=== PATIENT | female | born 1955 | race Asian ===

== ENCOUNTER 2018-05-20 20:06 | Inpatient (IN) | payer SELFPAY ==
[~2018-05-20] VITALS: Ht 152.4 cm; Wt 50.9 kg
[2018-05-20 20:28] LABS: GLUCOSE,POINT OF CARE 149 MG/DL (70-110)
[2018-05-20] MEDS ORDERED: FERR-82 PO (20:36)
[2018-05-20] MEDS ORDERED: AMLO-512 PO (20:36)
[2018-05-20] MEDS ORDERED: LINA5TAB PO (20:36)
[2018-05-20] MEDS ORDERED: SODI650T PO (20:36)
[2018-05-20] MEDS ORDERED: [UNRECOGNIZED DRUG - OTHER] PO (20:36)
[2018-05-20] MEDS ORDERED: CHOL200059 PO (20:36)
[2018-05-20] MEDS ORDERED: ASPI81 PO (20:36)
[2018-05-20 21:09] LABS: MONOCYTES # (AUTO) 0.8 K/uL (0.1-1.0); NEUTROPHILS % (AUTO) 78.8 % (40.0-70.0)
[2018-05-20 21:15] LABS: BASOPHILS % (AUTO) 0.4 % (0.0-2.0); EOSINOPHILS % (AUTO) 3.4 % (1.0-6.0); HEMATOCRIT 21.1 % (36-46); LYMPHOCYTES # (AUTO) 1.5 K/uL (1.0-4.8); LYMPHOCYTES % (AUTO) 11.4 % (22.0-44.0); MEAN CORPUSCULAR HEMOGLOBIN 28.3 pg (26.0-34.0); MEAN CORPUSCULAR HGB CONC 32.7 G/dL (31.0-37.0); MEAN CORPUSCULAR VOLUME 87 fL (80-100); NEUTROPHILS # (AUTO) 10.1 K/uL (1.8-7.7); PLATELET COUNT (AUTO) 249 K/uL (150-450); RED BLOOD CELL COUNT(AUTO) 2.44 MIL/uL (4.00-5.20); RED CELL DISTRIBUTION WIDTH 17.1 % (11.5-14.5)
[2018-05-20 21:16] LABS: CREATININE 8.19 mg/dL (0.60-1.30); POTASSIUM 5.1 mmol/L (3.5-5.1)
[2018-05-20 21:19] LABS: HEMOGLOBIN 6.9 g/dL (12.0-16.0)
[2018-05-20 21:21] LABS: ALBUMIN 2.7 g/dL (3.4-5.0); BILIRUBIN,TOTAL 0.4 mg/dL (0.1-1.0); TOTAL PROTEIN, SERUM 8.2 g/dL (6.4-8.2)
[2018-05-20] MEDS ORDERED: ONDANSETRON HCL 4 MG/2 ML VIAL IVP PRN (22:00)
[2018-05-20] MEDS ORDERED: ALBUTEROL SULFATE 2.5 MG/0.5 ML NEB SOLUTION NEB PRN (22:00)
[2018-05-20] MEDS ORDERED: ACETAMINOPHEN 325 MG TABLET PO PRN ×2 (22:00)
[2018-05-20] MEDS ORDERED: DEXTROSE 50%-WATER 25 GM/50 ML SYRINGE IVP PRN (22:00)
[2018-05-20] MEDS ORDERED: BISACODYL 10 MG RECTAL RECTAL SUPPOSITORY PR PRN (22:00)
[2018-05-20] MEDS ORDERED: 0.9% SODIUM CHLORIDE 10 ML SYRINGE IVP PRN (22:00)
[2018-05-20 23:10] VITALS: BP 154/93
[2018-05-20 23:25] VITALS: BP 160/68
[2018-05-20 23:40] VITALS: BP 158/79
[2018-05-20 23:55] VITALS: BP 165/72
[2018-05-21] VITALS (12 sets, daily range): BP systolic 110–175; BP diastolic 56–87
[2018-05-21] MEDS: CloNIDine HCL 0.1 MG TABLET PO PRN (00:51)
[2018-05-21] MEDS: INSULIN LISPRO 100 UNITS/ML SQ PRN ×3 (06:03→20:43)
[2018-05-21 06:32] LABS: BASOPHILS % (AUTO) 0.6 % (0.0-2.0); EOSINOPHILS % (AUTO) 3.2 % (1.0-6.0); HEMATOCRIT 22.8 % (36-46); HEMOGLOBIN 7.7 g/dL (12.0-16.0); LYMPHOCYTES # (AUTO) 1.3 K/uL (1.0-4.8); LYMPHOCYTES % (AUTO) 12.5 % (22.0-44.0); MEAN CORPUSCULAR HEMOGLOBIN 29.1 pg (26.0-34.0); MEAN CORPUSCULAR HGB CONC 33.5 G/dL (31.0-37.0); MEAN CORPUSCULAR VOLUME 87 fL (80-100); MONOCYTES # (AUTO) 0.7 K/uL (0.1-1.0); MONOCYTES % (AUTO) 6.3 % (2.0-9.0); NEUTROPHILS # (AUTO) 8.2 K/uL (1.8-7.7); NEUTROPHILS % (AUTO) 77.4 % (40.0-70.0); PLATELET COUNT (AUTO) 217 K/uL (150-450); RED BLOOD CELL COUNT(AUTO) 2.63 MIL/uL (4.00-5.20); RED CELL DISTRIBUTION WIDTH 16.4 % (11.5-14.5)
[2018-05-21 06:55] LABS: CALCIUM, TOTAL 8.8 mg/dL (8.8-10.5); CREATININE 8.45 mg/dL (0.60-1.30); POTASSIUM 5.2 mmol/L (3.5-5.1)
[2018-05-21] MEDS: PANTOPRAZOLE SODIUM 40 MG DR TABLET PO SCH (08:35)
[2018-05-21] MEDS: DOCUSATE SODIUM 100 MG CAPSULE PO SCH ×2 (08:35→20:34)
[2018-05-21] MEDS: ASPIRIN 81 MG CHEWABLE TABLET PO SCH (08:36)
[2018-05-21] MEDS ORDERED: AmLODIPine BESYLATE 10 MG TABLET PO SCH (09:00)
[2018-05-21 10:14] LABS: GLUCOMETER DEV NAME(LOC) 5N 1P; GLUCOSE,POINT OF CARE 142 MG/DL (70-110)
[2018-05-21] MEDS ORDERED: LIDOCAINE/PF 1% 2 ML VIAL INJ ONE (12:00)
[2018-05-21 15:09] LABS: GLUCOMETER DEV NAME(LOC) 5N 1P; GLUCOSE,POINT OF CARE 149 MG/DL (70-110)
[2018-05-21 19:54] LABS: GLUCOMETER DEV NAME(LOC) 5N 2S; GLUCOSE,POINT OF CARE 158 MG/DL (70-110)
[2018-05-21] MEDS: HydrALAZINE HCL 25 MG TABLET PO SCH (20:34)
[2018-05-21] MEDS: CARVEDILOL 6.25 MG TABLET PO SCH (21:46)
[2018-05-22] VITALS (8 sets, daily range): BP systolic 128–153; BP diastolic 66–88
[2018-05-22 02:09] LABS: GLUCOMETER DEV NAME(LOC) 5N 2S; GLUCOSE,POINT OF CARE 176 MG/DL (70-110)
[2018-05-22] MEDS: ASPIRIN 81 MG CHEWABLE TABLET PO SCH (08:10)
[2018-05-22] MEDS: PANTOPRAZOLE SODIUM 40 MG DR TABLET PO SCH (08:10)
[2018-05-22] MEDS: CARVEDILOL 6.25 MG TABLET PO SCH ×2 (08:10→20:35)
[2018-05-22] MEDS: HydrALAZINE HCL 25 MG TABLET PO SCH ×2 (08:10→20:35)
[2018-05-22] MEDS: DOCUSATE SODIUM 100 MG CAPSULE PO SCH ×2 (08:13→20:35)
[2018-05-22 08:42] LABS: BAND NEUTROPHILS % (MANUAL) 0 % (0-5)
[2018-05-22 08:48] LABS: HEMATOCRIT 30.8 % (36-46); HEMOGLOBIN 10.2 g/dL (12.0-16.0); MEAN CORPUSCULAR HEMOGLOBIN 29.1 pg (26.0-34.0); MEAN CORPUSCULAR HGB CONC 33.3 G/dL (31.0-37.0); MEAN CORPUSCULAR VOLUME 87 fL (80-100); PLATELET COUNT (AUTO) 243 K/uL (150-450); RED BLOOD CELL COUNT(AUTO) 3.52 MIL/uL (4.00-5.20); RED CELL DISTRIBUTION WIDTH 15.6 % (11.5-14.5)
[2018-05-22 08:58] LABS: CALCIUM, TOTAL 9.1 mg/dL (8.8-10.5); CREATININE 5.55 mg/dL (0.60-1.30); POTASSIUM 4.7 mmol/L (3.5-5.1)
[2018-05-22 09:49] LABS: BASOPHILS % (MANUAL) 1 % (0-2); LYMPHOCYTES % (MANUAL) 13 % (22-44); MONOCYTES % (MANUAL) 5 % (2-9); PLATELET MORPHOLOGY COMMENT LARGE PLTS PRESENT; SEGMENTED NEUTROPHILS % 81 % (40-70)
[2018-05-22] MEDS: APIXABAN 2.5 MG TABLET PO SCH ×2 (10:00→20:35)
[2018-05-22] MEDS: AmLODIPine BESYLATE 5 MG TABLET PO SCH (10:00)
[2018-05-22] MEDS ORDERED: ZOLPIDEM TARTRATE 5 MG TABLET PO PRN (10:30)
[2018-05-22] MEDS: GuaiFENesin/D-METHORPHAN [SUGAR-FREE] 200-20MG/10 ML SYRUP UDCUP PO PRN ×2 (11:27→22:08)
[2018-05-22] MEDS: INSULIN LISPRO 100 UNITS/ML SQ PRN ×2 (11:46→20:46)
[2018-05-22 18:09] LABS: GLUCOMETER DEV NAME(LOC) 5N 1P; GLUCOSE,POINT OF CARE 151 MG/DL (70-110)
[2018-05-22 18:09] LABS: GLUCOMETER DEV NAME(LOC) 5N 1P; GLUCOSE,POINT OF CARE 165 MG/DL (70-110)
[2018-05-22 18:54] LABS: GLUCOMETER DEV NAME(LOC) 5N 2S; GLUCOSE,POINT OF CARE 132 MG/DL (70-110)
[2018-05-23 04:04] VITALS: BP 163/76
[2018-05-23 06:22] LABS: BASOPHILS % (AUTO) 1.4 % (0.0-2.0); EOSINOPHILS % (AUTO) 3.2 % (1.0-6.0); HEMATOCRIT 29.1 % (36-46); HEMOGLOBIN 9.7 g/dL (12.0-16.0); LYMPHOCYTES # (AUTO) 1.4 K/uL (1.0-4.8); LYMPHOCYTES % (AUTO) 11.7 % (22.0-44.0); MEAN CORPUSCULAR HEMOGLOBIN 29.2 pg (26.0-34.0); MEAN CORPUSCULAR HGB CONC 33.3 G/dL (31.0-37.0); MEAN CORPUSCULAR VOLUME 88 fL (80-100); MONOCYTES # (AUTO) 0.8 K/uL (0.1-1.0); MONOCYTES % (AUTO) 6.5 % (2.0-9.0); NEUTROPHILS # (AUTO) 9.2 K/uL (1.8-7.7); NEUTROPHILS % (AUTO) 77.2 % (40.0-70.0); PLATELET COUNT (AUTO) 250 K/uL (150-450); RED BLOOD CELL COUNT(AUTO) 3.32 MIL/uL (4.00-5.20); RED CELL DISTRIBUTION WIDTH 15.8 % (11.5-14.5)
[2018-05-23 06:44] LABS: CALCIUM, TOTAL 9.1 mg/dL (8.8-10.5); CREATININE 6.72 mg/dL (0.60-1.30); POTASSIUM 5.5 mmol/L (3.5-5.1)
[2018-05-23 07:44] VITALS: BP 153/76
[2018-05-23] MEDS: AmLODIPine BESYLATE 5 MG TABLET PO SCH (09:00)
[2018-05-23] MEDS ORDERED: SODIUM CHLORIDE 0.9% 2,000 ML IV ONE (09:20)
[2018-05-23 11:41] VITALS: BP 157/75
[2018-05-23 13:34] LABS: GLUCOMETER DEV NAME(LOC) 5N 1P; GLUCOSE,POINT OF CARE 185 MG/DL (70-110)
[2018-05-23] MEDS: ASPIRIN 81 MG CHEWABLE TABLET PO SCH (14:38)
[2018-05-23] MEDS: PANTOPRAZOLE SODIUM 40 MG DR TABLET PO SCH (14:38)
[2018-05-23] MEDS: APIXABAN 2.5 MG TABLET PO SCH ×2 (14:38→20:34)
[2018-05-23] MEDS: CARVEDILOL 6.25 MG TABLET PO SCH ×2 (14:38→20:34)
[2018-05-23] MEDS: DOCUSATE SODIUM 100 MG CAPSULE PO SCH ×2 (14:38→20:34)
[2018-05-23] MEDS: HydrALAZINE HCL 25 MG TABLET PO SCH ×2 (14:38→20:34)
[2018-05-23] MEDS: EPOETIN ALFA 10,000 UNITS/ML 2 ML VIAL SQ SCH (14:39)
[2018-05-23] MEDS: AMIODARONE HCL 200 MG TABLET PO SCH ×2 (14:39→20:34)
[2018-05-23] MEDS: INSULIN LISPRO 100 UNITS/ML SQ PRN ×2 (14:40→20:50)
[2018-05-23 15:57] VITALS: BP 144/75
[2018-05-23 20:20] VITALS: BP 145/61
[2018-05-23] MEDS: GuaiFENesin/D-METHORPHAN [SUGAR-FREE] 200-20MG/10 ML SYRUP UDCUP PO PRN (21:41)
[2018-05-24] VITALS (7 sets, daily range): BP systolic 129–188; BP diastolic 60–83
[2018-05-24] MEDS: INSULIN LISPRO 100 UNITS/ML SQ PRN (05:45)
[2018-05-24 07:06] LABS: CALCIUM, TOTAL 8.8 mg/dL (8.8-10.5); CREATININE 5.35 mg/dL (0.60-1.30); MAGNESIUM 1.8 mg/dL (1.80-2.40); PHOSPHORUS 5.3 mg/dL (2.5-4.9); POTASSIUM 4.4 mmol/L (3.5-5.1)
[2018-05-24] MEDS: DOCUSATE SODIUM 100 MG CAPSULE PO SCH ×2 (09:26→21:15)
[2018-05-24] MEDS: HydrALAZINE HCL 25 MG TABLET PO SCH ×2 (09:26→21:15)
[2018-05-24] MEDS: AMIODARONE HCL 200 MG TABLET PO SCH ×2 (09:26→21:15)
[2018-05-24] MEDS: CARVEDILOL 6.25 MG TABLET PO SCH ×2 (09:26→21:14)
[2018-05-24] MEDS: AmLODIPine BESYLATE 5 MG TABLET PO SCH (09:26)
[2018-05-24] MEDS: ASPIRIN 81 MG CHEWABLE TABLET PO SCH (09:26)
[2018-05-24] MEDS: PANTOPRAZOLE SODIUM 40 MG DR TABLET PO SCH (09:26)
[2018-05-24] MEDS: APIXABAN 2.5 MG TABLET PO SCH ×2 (09:28→21:15)
[2018-05-24] MEDS: SEVELAMER CARBONATE 800 MG TABLET PO SCH ×2 (12:00→18:26)
[2018-05-24] MEDS ORDERED: LIDOCAINE/PF 1% 2 ML VIAL INJ ONE (12:00)
[2018-05-24 21:39] LABS: GLUCOMETER DEV NAME(LOC) 5N 1P; GLUCOSE,POINT OF CARE 131 MG/DL (70-110)
[2018-05-24 21:39] LABS: GLUCOMETER DEV NAME(LOC) 5N 1P; GLUCOSE,POINT OF CARE 183 MG/DL (70-110)
[2018-05-24 21:39] LABS: GLUCOMETER DEV NAME(LOC) 5N 1P; GLUCOSE,POINT OF CARE 193 MG/DL (70-110)
[2018-05-24 23:44] LABS: GLUCOMETER DEV NAME(LOC) 5N 1P; GLUCOSE,POINT OF CARE 173 MG/DL (70-110)
[2018-05-24] MEDS: CloNIDine HCL 0.1 MG TABLET PO PRN (23:52)
[2018-05-25 05:23] VITALS: BP 146/62
[2018-05-25] MEDS ORDERED: SODIUM CHLORIDE 0.9% 2,000 ML IV ONE (06:25)
[2018-05-25 06:54] LABS: GLUCOMETER DEV NAME(LOC) 5N 1P; GLUCOSE,POINT OF CARE 142 MG/DL (70-110)
[2018-05-25 07:24] VITALS: BP 144/69
[2018-05-25] MEDS: SEVELAMER CARBONATE 800 MG TABLET PO SCH ×3 (08:00→18:23)
[2018-05-25] MEDS: APIXABAN 2.5 MG TABLET PO SCH ×2 (09:00→21:50)
[2018-05-25 10:47] VITALS: BP 152/68
[2018-05-25] MEDS ORDERED: LIDOCAINE/PF 1% 2 ML VIAL INJ ONE (12:00)
[2018-05-25 15:33] VITALS: BP 173/78
[2018-05-25] MEDS: AmLODIPine BESYLATE 5 MG TABLET PO SCH (16:56)
[2018-05-25] MEDS: ASPIRIN 81 MG CHEWABLE TABLET PO SCH (16:57)
[2018-05-25] MEDS: AMIODARONE HCL 200 MG TABLET PO SCH ×2 (16:57→21:50)
[2018-05-25] MEDS: HydrALAZINE HCL 25 MG TABLET PO SCH ×2 (16:57→21:50)
[2018-05-25] MEDS: PANTOPRAZOLE SODIUM 40 MG DR TABLET PO SCH (16:57)
[2018-05-25] MEDS: CARVEDILOL 6.25 MG TABLET PO SCH ×2 (16:57→21:51)
[2018-05-25] MEDS: DOCUSATE SODIUM 100 MG CAPSULE PO SCH ×2 (16:57→21:50)
[2018-05-25 20:46] VITALS: BP 155/66
[2018-05-25 21:14] LABS: GLUCOMETER DEV NAME(LOC) 5N 2S; GLUCOSE,POINT OF CARE 127 MG/DL (70-110)
[2018-05-25 21:19] LABS: GLUCOMETER DEV NAME(LOC) 5N 2S; GLUCOSE,POINT OF CARE 166 MG/DL (70-110)
[2018-05-25 21:19] LABS: GLUCOMETER DEV NAME(LOC) 5N 2S; GLUCOSE,POINT OF CARE 177 MG/DL (70-110)
[2018-05-25 21:19] LABS: GLUCOMETER DEV NAME(LOC) 5N 2S; GLUCOSE,POINT OF CARE 181 MG/DL (70-110)
[2018-05-25 21:19] LABS: GLUCOMETER DEV NAME(LOC) 5N 2S; GLUCOSE,POINT OF CARE 190 MG/DL (70-110)
[2018-05-25 21:19] LABS: GLUCOMETER DEV NAME(LOC) 5N 2S; GLUCOSE,POINT OF CARE 173 MG/DL (70-110)
[2018-05-25] MEDS: GuaiFENesin/D-METHORPHAN [SUGAR-FREE] 200-20MG/10 ML SYRUP UDCUP PO PRN (23:32)
[2018-05-26 00:05] VITALS: BP 157/67
[2018-05-26 05:00] VITALS: BP 145/66
[2018-05-26 06:45] LABS: GLUCOMETER DEV NAME(LOC) 5N 1P; GLUCOSE,POINT OF CARE 112 MG/DL (70-110)
[2018-05-26 07:10] VITALS: BP 157/64
[2018-05-26] MEDS: AmLODIPine BESYLATE 5 MG TABLET PO SCH (08:17)
[2018-05-26] MEDS: SEVELAMER CARBONATE 800 MG TABLET PO SCH ×3 (08:17→17:58)
[2018-05-26] MEDS: AMIODARONE HCL 200 MG TABLET PO SCH (08:17)
[2018-05-26] MEDS: PANTOPRAZOLE SODIUM 40 MG DR TABLET PO SCH (08:17)
[2018-05-26] MEDS: APIXABAN 2.5 MG TABLET PO SCH (08:22)
[2018-05-26] MEDS: ASPIRIN 81 MG CHEWABLE TABLET PO SCH (08:22)
[2018-05-26] MEDS: HydrALAZINE HCL 25 MG TABLET PO SCH (08:22)
[2018-05-26] MEDS: DOCUSATE SODIUM 100 MG CAPSULE PO SCH (08:22)
[2018-05-26] MEDS: CARVEDILOL 6.25 MG TABLET PO SCH (08:22)
[2018-05-26] MEDS: EPOETIN ALFA 10,000 UNITS/ML 2 ML VIAL SQ SCH (08:22)
[2018-05-26 10:39] VITALS: BP 154/67
[2018-05-26] MEDS: INSULIN LISPRO 100 UNITS/ML SQ PRN ×2 (12:15→17:59)
[2018-05-26] MEDS ORDERED: AMIO200T44 PO (12:29)
[2018-05-26] MEDS ORDERED: APIX2.5T PO (12:29)
[2018-05-26] MEDS ORDERED: AMLO-511 PO (12:30)
[2018-05-26] MEDS ORDERED: CARV6 PO (12:30)
[2018-05-26] MEDS ORDERED: EPOE10I SQ (12:32)
[2018-05-26] MEDS ORDERED: PANT40TA25 PO (12:32)
[2018-05-26] MEDS ORDERED: SEVEC800 PO (12:33)
[2018-05-26] MEDS: CloNIDine HCL 0.1 MG TABLET PO PRN (18:26)
[2018-05-26 20:54] LABS: GLUCOMETER DEV NAME(LOC) 5N 1P; GLUCOSE,POINT OF CARE 152 MG/DL (70-110)
[2018-05-26 20:54] LABS: GLUCOMETER DEV NAME(LOC) 5N 1P; GLUCOSE,POINT OF CARE 207 MG/DL (70-110)
[2018-05-26 21:14] LABS: GLUCOMETER DEV NAME(LOC) 5N 2S; GLUCOSE,POINT OF CARE 120 MG/DL (70-110)
== END 2018-05-26 19:10 | disposition home or self-care (01) | DRG 682 ==
LOC: EMS 20:06 → 5N 22:00
PROVIDERS: ADMIT Internal Medicine; ATTEND Internal Medicine
PROC: 30233N1 Transfusion of Nonautologous Red Blood Cells into Peripheral Vein, Percutaneous Approach (ICD-10-PCS; principal; 2018-05-20)
PROC: 5A1D70Z Performance of Urinary Filtration, Intermittent, Less than 6 Hours Per Day (ICD-10-PCS; 2018-05-21)
PROC: 5A1D70Z Performance of Urinary Filtration, Intermittent, Less than 6 Hours Per Day (ICD-10-PCS; 2018-05-23)
PROC: 5A1D70Z Performance of Urinary Filtration, Intermittent, Less than 6 Hours Per Day (ICD-10-PCS; 2018-05-25)
DX: I12.0 Hypertensive chronic kidney disease with stage 5 chronic kidney disease or end stage renal disease (principal); N18.6 End stage renal disease; E11.22 Type 2 diabetes mellitus with diabetic chronic kidney disease; D63.8 Anemia in other chronic diseases classified elsewhere; D63.1 Anemia in chronic kidney disease; E11.21 Type 2 diabetes mellitus with diabetic nephropathy; E78.5 Hyperlipidemia, unspecified; E83.39 Other disorders of phosphorus metabolism; E87.5 Hyperkalemia; G89.29 Other chronic pain; I48.91 Unspecified atrial fibrillation; Z82.49 Family history of ischemic heart disease and other diseases of the circulatory system; Z83.3 Family history of diabetes mellitus; Z99.2 Dependence on renal dialysis
CPT/HCPCS: 82271; 83735; 84100; 85007; 86850; 86900; 86901; 86920; 87040; 87081; 87340; 93005; 93306; 99285; J0885; J3490; J7030; P9016